=== PATIENT | female | born 1940 | race Caucasian/White ===

== ENCOUNTER 2017-06-28 16:57 | Inpatient (IN) | payer MEDICARE, MEDICAID ==
--- NOTE | 2017-06-28 17:17 | ER Document Report ---
ED Respiratory Problem - General Chief Complaint: Congestion Stated Complaint: COUGH,CONGESTION Time Seen by Provider: 06/28/17 17:13 Notes: The patient is a 77-year-old female who presents with productive yellow cough, congestion, fevers (100.9) and decreased oxygenation (satting 84% on RA) when she was at the [facility] urgent care center. The fever started earlier today that is what prompted the urgent care visit. Patient does not wear oxygen at home. She got her flu shot this year. Patient denies rash, chest pain, leg swelling, abdominal pain, urinary symptoms, headache, neck stiffness or hemoptysis. TRAVEL OUTSIDE OF THE [place] IN LAST 30 DAYS: No - Related Data Allergies/Adverse Reactions: codeine [Codeine] Allergy (Mild, Verified 03/19/16 10:14) DIZZINES aspirin [Aspirin] Allergy (Verified 03/19/16 10:14) Unknown reaction celecoxib [From Celebrex] Allergy (Verified 03/19/16 10:14) Past Medical History - General Information source: Patient, Emergency Med Personnel, Outside Facility Records - Social History Smoking Status: Unknown if Ever Smoked Family History: Reviewed & Not Pertinent - Past Medical History Cardiac Medical History: Denies: Hx Heart Attack, Hx Hypertension Pulmonary Medical History: Reports: Hx Asthma Neurological Medical History: Denies: Hx Cerebrovascular Accident, Hx Seizures GI Medical History: Denies: Hx Hepatitis, Hx Hiatal Hernia, Hx Ulcer Musculoskeltal Medical History: Reports Hx Arthritis Infectious Medical History: Denies: Hx Hepatitis Past Surgical History: Reports: Hx Cholecystectomy, Hx Hysterectomy. Denies: Hx Mastectomy, Hx Open Heart Surgery, Hx Pacemaker Review of Systems - Review of Systems Notes: REVIEW OF SYSTEMS: CONSTITUTIONAL: +fevers, -chills EENT: -eye pain, -difficulty swallowing, +nasal congestion CARDIOVASCULAR: -chest pain, -syncope. RESPIRATORY: +cough, -SOB GASTROINTESTINAL: -abdominal pain, -nausea, -vomiting, -diarrhea GENITOURINARY: -dysuria, -hematuria MUSCULOSKELETAL: -back pain, -neck pain SKIN: -rash or skin lesions. HEMATOLOGIC: -easy bruising or bleeding. LYMPHATIC: -swollen, enlarged glands. NEUROLOGICAL: -altered mental status or loss of consciousness, -headache, - neurologic symptoms PSYCHIATRIC: -anxiety, -depression. ALL OTHER SYSTEMS REVIEWED AND NEGATIVE. Physical Exam - Vital signs Vitals: Temp Resp Pulse Ox 101.2 F H 20 96 06/28/17 17:18 06/28/17 17:18 06/28/17 17:18 - Notes Notes: PHYSICAL EXAMINATION: GENERAL: No acute distress. Harsh productive cough. HEAD: Atraumatic, normocephalic. EYES: Pupils equal round and reactive to light, extraocular movements intact, sclera anicteric, conjunctiva are normal. ENT: nares patent, oropharynx clear without exudates. Moist mucous membranes. NECK: Normal range of motion, supple without lymphadenopathy LUNGS: Mild tachypnea. Crackles in RLL and LLL. HEART: Regular rate and rhythm without murmurs ABDOMEN: Soft, nontender, normoactive bowel sounds. No guarding, no rebound. No masses appreciated. EXTREMITIES: Normal range of motion, no pitting or edema. No cyanosis. NEUROLOGICAL: Cranial nerves grossly intact. Normal speech, normal gait. Normal sensory and motor exams. PSYCH: Normal mood, normal affect. SKIN: Warm, Dry, normal turgor, no rashes or lesions noted. Course - Re-evaluation Re-evalutation: Patient found to be 84% on room air at the urgent care center and does not wear oxygen at home. She is satting 96% on 2 L nasal cannula . Patient with harsh productive cough and crackles in B/L lower lobes. She has not been recently hospitalized and lives at home. Will begin CAP antibiotics due to suspected B/ L lower lobe pneumonia. Her primary care physician is Dr. Bob Miller. She requires admission due to her hypoxia and further evaluation and treatment of her pneumonia and sepsis. 06/28/17 19:[address] More and will admit patient as Inpatient to [facility]. - Vital Signs Vital signs: Temp Pulse Resp BP Pulse Ox 98.2 F 16 133/74 H 96 06/28/17 19:04 06/28/17 19:04 06/28/17 19:04 06/28/17 19:04 - Laboratory Result Diagrams: 06/28/17 17:40 06/28/17 17:40 Laboratory results interpreted by me: 06/28/17 06/28/17 06/28/17 17:25 17:40 17:40 WBC 18.0 H Lymphocytes % 12.1 L Absolute Neutrophils 13.9 H Absolute Monocytes 1.8 H Sodium 134.2 L Chloride 92 L BUN 21 H Est GFR ( Amer) 59 L Est GFR (Non-Af Amer) 49 L Glucose 251 H POC Glucose 249 H Direct Bilirubin 0.5 H Alkaline Phosphatase 133 H - Diagnostic Test Radiology reviewed: Image reviewed, Reports reviewed Radiology results interpreted by me: CXR: Small areas of airspace disease in both medial lung bases. No significant effusion. No pneumothorax. Mild interstitial markings. Discharge - Discharge Clinical Impression: Hypoxia Pneumonia Qualifiers: Pneumonia type: due to unspecified organism Laterality: bilateral Lung location : lower lobe of lung Qualified Code(s): J18.9 - Pneumonia, unspecified organism Condition: Stable Disposition: ADMITTED INPATIENT Admitting Provider: Hospitalist - [facility] Unit Admitted: Telemetry Referrals: BOB MILLER MD [Primary Care Provider] - Follow up as needed
[2017-06-28] MEDS ORDERED: CEFTRIAXONE 1 GM/D5W RTU 1 GM/50 ML RTUPB IV ONE (17:32)
[2017-06-28] MEDS ORDERED: AZITHROMYCIN INJ 500 MG VIAL IV ONE (17:32)
[2017-06-28 17:57] LABS: ABSOLUTE EOSINOPHILS # (AUTO) 0.1 10^3/uL (0.0-0.6); ABSOLUTE LYMPHOCYTES (AUTO) 2.2 10^3/uL (0.5-4.7); ABSOLUTE MONOCYTES (AUTO) 1.8 10^3/uL (0.1-1.4); ABSOLUTE NEUT (AUTO) 13.9 10^3/uL (1.7-8.2); BASOPHILS % (AUTO) 0.2 % (0-2); EOSINOPHILS % (AUTO) 0.4 % (0-6); HEMATOCRIT 37.1 % (36.0-47.0); HEMOGLOBIN 12.3 g/dL (12.0-15.5); LYMPHOCYTES % (AUTO) 12.1 % (13-45); MEAN CORPUSCULAR HEMOGLOBIN 30.4 pg (27.0-33.4); MEAN CORPUSCULAR HGB CONC 33.2 g/dL (32.0-36.0); MEAN CORPUSCULAR VOLUME 92 fl (80-97); MONOCYTES % (AUTO) 10.2 % (3-13); PLATELET COUNT 196 10^3/uL (150-450); RED BLOOD COUNT 4.04 10^6/uL (3.72-5.28); RED CELL DISTRIBUTION WIDTH 12.9 % (11.5-14.0); SEGMENTED NEUTROPHILS % (AUTO) 77.1 % (42-78); TOTAL CELLS COUNTED % (AUTO) 100 %; VENOUS BLOOD BASE EXCESS 4.8 mmol/L; VENOUS BLOOD HCO3 31.9 mmol/L (20-32); VENOUS BLOOD PCO2 58.5 mmHg (35-63); VENOUS BLOOD PH 7.35 (7.30-7.42)
[2017-06-28] MEDS ORDERED: CEFTRIAXONE INJ 1000 MG VIAL ONE (18:05)
[2017-06-28 18:17] LABS: ALANINE AMINOTRANSFERASE 24 U/L (9-52); ALBUMIN 3.7 g/dL (3.5-5.0); ALKALINE PHOSPHATASE 133 U/L (38-126); ANION GAP 12 (5-19); ASPARTATE AMINO TRANSFERASE 32 U/L (14-36); BILIRUBIN,DIRECT 0.5 mg/dL (0.0-0.4); BILIRUBIN,TOTAL 1.1 mg/dL (0.2-1.3); BLOOD UREA NITROGEN 21 mg/dL (7-20); CALCIUM 8.8 mg/dL (8.4-10.2); CARBON DIOXIDE 30 mmol/L (22-30); CHLORIDE 92 mmol/L (98-107); GLUCOSE 251 mg/dL (75-110); POTASSIUM 4.3 mmol/L (3.6-5.0); SODIUM 134.2 mmol/L (137-145); TOTAL PROTEIN 7.2 g/dL (6.3-8.2)
--- NOTE | 2017-06-28 18:18 | RADIOLOGY REPORT (SQ) ---
EXAM DESCRIPTION: CHEST SINGLE VIEW COMPLETED DATE/TIME: 06/28/2017 5:35 pm REASON FOR STUDY: hypoxia COMPARISON: None. EXAM PARAMETERS: NUMBER OF VIEWS: One view. TECHNIQUE: Single frontal radiographic view of the chest acquired. RADIATION DOSE: NA LIMITATIONS: None. FINDINGS: LUNGS AND PLEURA: Small areas of airspace disease in both medial lung bases. No significa nt effusion. No pneumothorax. Mild interstitial markings. MEDIASTINUM AND HILAR STRUCTURES: Age-appropriate. HEART AND VASCULAR STRUCTURES: Heart normal in size. Normal vasculature. BONES: No acute findings. HARDWARE: None in the chest. OTHER: No other significant finding. IMPRESSION: Small areas of airspace disease in both medial lung bases. No significant effusion. No pneumothorax. Mild interstitial markings. TECHNICAL DOCUMENTATION: JOB ID: [id number] 2010 [employer]- All Rights Reserved Reading location - IP/workstation name: [email or web address]
[2017-06-28 18:29] LABS: NT PRO BNP 351 pg/mL (<450); TROPONIN I < 0.012 ng/mL
[2017-06-28 19:46] LABS: A TYPE INFLUENZA AG NEGATIVE (NEGATIVE); B INFLUENZA AG NEGATIVE (NEGATIVE)
[2017-06-28] MEDS ORDERED: ALBUTEROL SULFATE 0.083% NEB 2.5 MG/3 ML AMPUL NEB PRN (20:00)
[2017-06-28] MEDS ORDERED: PROMETHAZINE HCL INJ 25 MG/1 ML VIAL IV PRN (20:00)
[2017-06-28] MEDS ORDERED: 1/2 NORMAL SALINE 1,000 ML IV PRN (20:00)
[2017-06-28] MEDS: ACETAMINOPHEN 325 MG TABLET PO PRN (20:21)
[2017-06-28] MEDS ORDERED: FLUTICASONE NASAL SPRAY 50 MCG/SPRY 120 SPRAY/16 GM NASL ONE (21:15)
--- NOTE | 2017-06-28 21:32 | EKG REPORT ---
SEVERITY:- NORMAL ECG - SINUS RHYTHM : Confirmed by: Chang Lopez MD 28-Jun-2017 21:31:33
[2017-06-28] MEDS ORDERED: DEXTROSE 40% GEL 15 GM TUBE PO PRN ×2 (21:46)
[2017-06-28] MEDS ORDERED: GLUCAGON,HUMAN RECOMB 1 MG INJ IM PRN (21:46)
[2017-06-28] MEDS ORDERED: DEXTROSE 50%-WATER 25 GM/50 ML DISP.SYRIN IV PRN ×2 (21:46)
--- NOTE | 2017-06-28 22:56 | PDOC H&P ---
History of Present Illness Admission Date/PCP: BOB SHRESTHA MD Patient complains of: Congestion and productive cough with worsening shortness of breath since yesterday. History of Present Illness: WASHINGTON SEXTON is a 77 year old morbidly obese female with history of asthma and type 2 diabetes mellitus was admitted with above-mentioned complaints. Some of the history was obtained from her children at bedside. According to the patient, she had some sinus pressure/congestion since yesterday. She thought that it was due to seasonal allergies. But this morning, she had increased wheezing and shortness of breath with a productive cough of greenish sputum. She has a nebulizer machine at home but she did not use it. She complained of having some chills but denied any sick contact. She is up-to- date with her flu vaccine. She apparently was seen at [facility] urgent [facility] [place] where her oxygen saturation was 84% on room air so her family brought her to the hospital for further assessment and treatment. In the ED, her temperature was 101.2, heart rate not recorded, respiratory rate 20, blood pressure 133/74 with oxygen saturation of 96% on 2 liters nasal cannula. Her WBC was 18.0 and her hemoglobin was 12.3. Her troponin x1 was negative and her proBNP was 351. A chest x-ray was done which showed infiltrates in bilateral medial bases. She received 1 g of Rocephin 1 and 500 mg IV Zithromax 1. Past Medical History Medical History: Other - According to the patient and per previous records. Cardiac Medical History: Denies: Myocardial Infarction, Hypertension Pulmonary Medical History: Reports: Asthma Neurological Medical History: Denies: Seizures Endocrine Medical History: Reports: Diabetes Mellitus Type 2 GI Medical History: Denies: Hepatitis, Hiatal Hernia Musculoskeltal Medical History: Reports: Arthritis Hematology: Denies: Anemia, Sickle Cell Disease Past Surgical History Past Surgical History: Reports: Cholecystectomy, Hysterectomy, Other - C- section x1. Denies: Amputation, Mastectomy, Pacemaker Social History Smoking Status: Unknown if Ever Smoked Cigarettes Packs Per Day: 0 Frequency of Alcohol Use: None Family History Parental Family History Reviewed: Yes - Mother: heart disease and diabetes. Children Family History Reviewed: No Sibling(s) Family History Reviewed.: Yes Medication/Allergy Home Medications: Ciprofloxacin HCl [Cipro 500 mg Tablet] 500 mg PO BID #20 tablet 11/15/16 Phenazopyridine HCl [Pyridium 200 mg Tablet] 200 mg PO TID #15 tablet 03/19/16 Allergies/Adverse Reactions: codeine [Codeine] Allergy (Mild, Verified 03/19/16 10:14) DIZZINES aspirin [Aspirin] Allergy (Verified 03/19/16 10:14) Unknown reaction celecoxib [From Celebrex] Allergy (Verified 03/19/16 10:14) Review of Systems ROS unobtainable: Other - Pertinent positives and negatives per HPI. The patient denies any nausea, vomiting, abdominal pain, diarrhea or constipation or any urinary symptoms. She has bilateral leg weakness and uses a cane/walker to ambulate. Physical Exam Vital Signs: Temp Pulse Resp BP Pulse Ox 98.2 F 16 133/74 H 96 06/28/17 19:04 06/28/17 19:04 06/28/17 19:04 06/28/17 19:04 General appearance: PRESENT: no acute distress, well-developed, well-nourished Head exam: PRESENT: atraumatic, normocephalic Eye exam: PRESENT: conjunctiva pink, PERRLA Mouth exam: PRESENT: moist, tongue midline Neck exam: ABSENT: JVD Respiratory exam: PRESENT: clear to auscultation sonya. ABSENT: rales, rhonchi, wheezes Cardiovascular exam: PRESENT: RRR - S1 S2 normal. Pulses: PRESENT: normal dorsalis pedis pul, +1 pedal pulses bilateral Vascular exam: PRESENT: normal capillary refill GI/Abdominal exam: PRESENT: normal bowel sounds, soft. ABSENT: distended, rebound, tenderness Rectal exam: PRESENT: deferred Extremities exam: PRESENT: full ROM, pedal edema. ABSENT: calf tenderness, clubbing Neurological exam: PRESENT: alert, awake, oriented to person, oriented to place , oriented to time, oriented to situation Skin exam: PRESENT: dry, intact, warm. ABSENT: cyanosis, rash Results Laboratory Results: 06/28/17 17:40 06/28/17 17:40 06/28/17 06/28/17 06/28/17 17:40 17:40 17:40 WBC 18.0 H RBC 4.04 Hgb 12.3 Hct 37.1 MCV 92 MCH 30.4 MCHC 33.2 RDW 12.9 Plt Count 196 Seg Neutrophils % 77.1 Lymphocytes % 12.1 L Monocytes % 10.2 Eosinophils % 0.4 Basophils % 0.2 Absolute Neutrophils 13.9 H Absolute Lymphocytes 2.2 Absolute Monocytes 1.8 H Absolute Eosinophils 0.1 Absolute Basophils 0.0 VBG pH VBG pCO2 VBG HCO3 VBG Base Excess Sodium 134.2 L Potassium 4.3 Chloride 92 L Carbon Dioxide 30 Anion Gap 12 BUN 21 H Creatinine 1.08 Est GFR ( Amer) 59 L Est GFR (Non-Af Amer) 49 L Glucose 251 H Lactic Acid 1.5 Calcium 8.8 Total Bilirubin 1.1 AST 32 ALT 24 Alkaline Phosphatase 133 H Total Protein 7.2 Albumin 3.7 06/28/17 17:40 WBC RBC Hgb Hct MCV MCH MCHC RDW Plt Count Seg Neutrophils % Lymphocytes % Monocytes % Eosinophils % Basophils % Absolute Neutrophils Absolute Lymphocytes Absolute Monocytes Absolute Eosinophils Absolute Basophils VBG pH 7.35 VBG pCO2 58.5 VBG HCO3 31.9 VBG Base Excess 4.8 Sodium Potassium Chloride Carbon Dioxide Anion Gap BUN Creatinine Est GFR ( Amer) Est GFR (Non-Af Amer) Glucose Lactic Acid Calcium Total Bilirubin AST ALT Alkaline Phosphatase Total Protein Albumin 06/28/17 17:40 Troponin I < 0.012 NT-Pro-B Natriuret Pep 351 Impressions: Chest X-Ray 06/28/17 17:14 IMPRESSION: Small areas of airspace disease in both medial lung bases. No significant effusion. No pneumothorax. Mild interstitial markings. Assessment & Plan - Diagnosis (1) Acute respiratory failure with hypoxia and hypercapnia Is this a current diagnosis for this admission?: Yes Plan: Given tachypnea and oxygen saturation down to 84% on room air requiring 2 L oxygen via nasal cannula, due to pneumonia or possibly asthma exacerbation. Albuterol nebulizer as needed, will start Prednisone and continue antibiotics. Flonase for nasal congestion. (2) Community acquired bacterial pneumonia Is this a current diagnosis for this admission?: Yes Plan: CXR reviewed. We will continue Rocephin/Zithromax while awaiting blood cultures. (3) Sepsis Qualifiers: Sepsis type: sepsis due to unspecified organism Qualified Code(s): A41.9 - Sepsis, unspecified organism Is this a current diagnosis for this admission?: Yes Plan: by criteria given fever and leukocytosis in the setting of pneumonia. However, the patient does not look septic clinically. Management as mentioned above (4) Type 2 diabetes mellitus Qualifiers: Diabetes mellitus complication status: with neurologic complications Diabetes mellitus complication detail: with unspecified neuropathy Diabetes mellitus half-way insulin use: with half-way use Qualified Code(s): E11.40 - Type 2 diabetes mellitus with diabetic neuropathy, unspecified; Z79.4 - [facility] (current) use of insulin; Z79.4 - family mediator (current) use of insulin; Z79.4 - family mediator (current) use of insulin; Z79.4 - family mediator (current) use of insulin Is this a current diagnosis for this admission?: Yes Plan: We will continue 70/30 (20 units) twice a day and add lispro sliding scale. - Time Time Spent: 50 to 70 Minutes Anticipated discharge: Home - Inpatient Certification Based on my medical assessment, after consideration of the patient's comorbidities, presenting symptoms, or acuity I expect that the services needed warrant INPATIENT care.: Yes I certify that my determination is in accordance with my understanding of Medicare's requirements for reasonable and necessary INPATIENT services [42 CFR 412.3e].: Yes
[2017-06-28] MEDS ORDERED: PREDNISONE 20 MG TABLET PO ONE (23:15)
[2017-06-29] MEDS: HEPARIN SOD (PORCINE) 5,000 UNIT/ML 1 ML SYRINGE SUBCUT SCH ×4 (01:34→21:05)
[2017-06-29] MEDS: ACETAMINOPHEN 325 MG TABLET PO PRN ×2 (05:04→23:47)
[2017-06-29 07:46] LABS: HEMOGLOBIN 12.7 g/dL (12.0-15.5); MEAN CORPUSCULAR HEMOGLOBIN 30.5 pg (27.0-33.4); MEAN CORPUSCULAR HGB CONC 33.3 g/dL (32.0-36.0); MEAN CORPUSCULAR VOLUME 92 fl (80-97); PLATELET COUNT 164 10^3/uL (150-450); RED BLOOD COUNT 4.15 10^6/uL (3.72-5.28); RED CELL DISTRIBUTION WIDTH 12.5 % (11.5-14.0); WHITE BLOOD COUNT 11.9 10^3/uL (4.0-10.5)
[2017-06-29] MEDS: INSULIN LISPRO 100 UNIT/ML 3 ML VIAL SUBCUT PRN ×4 (07:56→21:05)
[2017-06-29] MEDS: HUM INSULIN NPH/REG INSULIN HM 100 UNIT/1 ML 3 ML SUBCUT SCH ×2 (07:56→16:39)
[2017-06-29 07:59] LABS: ANION GAP 17 (5-19); BLOOD UREA NITROGEN 18 mg/dL (7-20); CALCIUM 8.5 mg/dL (8.4-10.2); CARBON DIOXIDE 27 mmol/L (22-30); CHLORIDE 90 mmol/L (98-107); GLUCOSE 285 mg/dL (75-110); POTASSIUM 4.7 mmol/L (3.6-5.0); SODIUM 133.5 mmol/L (137-145)
[2017-06-29] MEDS ORDERED: PREDNISONE 20 MG TABLET PO SCH (10:00)
[2017-06-29] MEDS: CEFTRIAXONE SODIUM 1,000 MG in NORMAL SALINE 100 ML IV SCH (10:40)
[2017-06-29] MEDS: FLUTICASONE NASAL SPRAY 50 MCG/SPRY 120 SPRAY/16 GM NASL SCH (10:41)
--- NOTE | 2017-06-29 11:37 | PDOC PROGRESS REPORT ---
Subjective Progress Note for:: 06/29/17 Subjective:: Patient admitted with congestion and productive cough associated with shortness of breath. She also complained of a greenish sputum. She was found to be hypoxemic and was brought to the emergency room where she was also found to be febrile with a temperature 101.2 and tachypneic. Reason For Visit: PNEUMONIA Physical Exam Vital Signs: Temp Pulse Resp BP Pulse Ox 98.1 F 97 20 130/95 H 93 06/29/17 08:21 06/29/17 08:21 06/29/17 08:21 06/29/17 08:21 06/29/17 08:21 Intake & Output 06/28/17 06/29/17 06/30/17 06:59 06:59 06:59 Intake Total 400 Output Total 250 Balance 150 Weight 93 kg General appearance: PRESENT: no acute distress, cooperative Head exam: PRESENT: atraumatic Neck exam: ABSENT: carotid bruit, JVD, lymphadenopathy, thyromegaly Respiratory exam: PRESENT: decreased breath sounds, rhonchi, unlabored. ABSENT : tachypnea, wheezes Cardiovascular exam: PRESENT: RRR. ABSENT: diastolic murmur, rubs, systolic murmur Pulses: PRESENT: normal dorsalis pedis pul GI/Abdominal exam: PRESENT: normal bowel sounds, soft. ABSENT: distended, guarding, mass, organolmegaly, rebound, tenderness Rectal exam: PRESENT: deferred Gentrourinary exam: ABSENT: ecchymosis Extremities exam: ABSENT: calf tenderness Neurological exam: PRESENT: alert, altered, awake, oriented to person, oriented to place, oriented to time, oriented to situation Psychiatric exam: PRESENT: appropriate affect, normal mood. ABSENT: homicidal ideation, suicidal ideation Results Laboratory Results: 06/29/17 07:03 06/29/17 07:03 06/29/17 06/29/17 07:03 07:03 WBC 11.9 H RBC 4.15 Hgb 12.7 Hct 38.0 MCV 92 MCH 30.5 MCHC 33.3 RDW 12.5 Plt Count 164 Sodium 133.5 L Potassium 4.7 Chloride 90 L Carbon Dioxide 27 Anion Gap 17 BUN 18 Creatinine 0.95 Est GFR ( Amer) > 60 Est GFR (Non-Af Amer) 57 L Glucose 285 H Calcium 8.5 Impressions: Chest X-Ray 06/28/17 17:14 IMPRESSION: Small areas of airspace disease in both medial lung bases. No significant effusion. No pneumothorax. Mild interstitial markings. Assessment & Plan - Time Time Spent with patient: 15-24 minutes Medications reviewed and adjusted accordingly: Yes Anticipated discharge: Home Within: within 72 hours - Inpatient Certification Medical Necessity: Failure to Improve With Outpatient Therapy, Need for IV Antibiotics - Plan Summary Plan Summary: 1.Sepsis with the fever, tachypnea, hypoxemia leukocytosis and respiratory infection. This seems to be improving 2. Acute hypoxemic respiratory failure with oxygen improved with 2 L of nasal cannula. 3. Community-acquired pneumonia currently on empiric treatment with ceftriaxone and Zithromax. Will continue both 4. Type 2 diabetes mellitus on sliding scale insulin as well as basal insulin with 7030. 5. Morbid obesity with a BMI of 41 patient should be encouraged to lose weight.
[2017-06-29] MEDS: AZITHROMYCIN 500 MG in DEXTROSE 5%-WATER 250 ML IV SCH (17:13)
[2017-06-29] MEDS ORDERED: CEFTRIAXONE 1 GM/D5W RTU 1 GM/50 ML RTUPB IV SCH (18:00)
[2017-06-30] MEDS: HEPARIN SOD (PORCINE) 5,000 UNIT/ML 1 ML SYRINGE SUBCUT SCH ×3 (05:22→21:47)
[2017-06-30 06:11] LABS: ABSOLUTE LYMPHOCYTES (AUTO) 1.4 10^3/uL (0.5-4.7); ABSOLUTE MONOCYTES (AUTO) 0.9 10^3/uL (0.1-1.4); ABSOLUTE NEUT (AUTO) 10.1 10^3/uL (1.7-8.2); BASOPHILS % (AUTO) 0.3 % (0-2); HEMATOCRIT 37.5 % (36.0-47.0); HEMOGLOBIN 12.5 g/dL (12.0-15.5); LYMPHOCYTES % (AUTO) 11.3 % (13-45); MEAN CORPUSCULAR HEMOGLOBIN 30.4 pg (27.0-33.4); MEAN CORPUSCULAR HGB CONC 33.3 g/dL (32.0-36.0); MEAN CORPUSCULAR VOLUME 91 fl (80-97); MONOCYTES % (AUTO) 7.6 % (3-13); PLATELET COUNT 193 10^3/uL (150-450); RED BLOOD COUNT 4.12 10^6/uL (3.72-5.28); RED CELL DISTRIBUTION WIDTH 12.5 % (11.5-14.0); SEGMENTED NEUTROPHILS % (AUTO) 80.8 % (42-78); TOTAL CELLS COUNTED % (AUTO) 100 %; WHITE BLOOD COUNT 12.5 10^3/uL (4.0-10.5)
[2017-06-30 06:42] LABS: ANION GAP 11 (5-19); BLOOD UREA NITROGEN 23 mg/dL (7-20); CALCIUM 9.3 mg/dL (8.4-10.2); CARBON DIOXIDE 33 mmol/L (22-30); CHLORIDE 96 mmol/L (98-107); GLUCOSE 295 mg/dL (75-110); POTASSIUM 3.9 mmol/L (3.6-5.0); SODIUM 139.7 mmol/L (137-145)
[2017-06-30] MEDS: HUM INSULIN NPH/REG INSULIN HM 100 UNIT/1 ML 3 ML SUBCUT SCH ×2 (08:12→17:01)
[2017-06-30] MEDS: INSULIN LISPRO 100 UNIT/ML 3 ML VIAL SUBCUT PRN ×3 (08:12→22:03)
[2017-06-30] MEDS: CEFTRIAXONE SODIUM 1,000 MG in NORMAL SALINE 100 ML IV SCH (10:08)
[2017-06-30] MEDS: FLUTICASONE NASAL SPRAY 50 MCG/SPRY 120 SPRAY/16 GM NASL SCH (10:09)
--- NOTE | 2017-06-30 14:43 | PDOC PROGRESS REPORT ---
Subjective Progress Note for:: 06/30/17 Subjective:: Patient admitted with congestion and productive cough associated with shortness of breath. She also complained of a greenish sputum. She was found to be hypoxemic and was brought to the emergency room where she was also found to be febrile with a temperature 101.2 and tachypneic. Patient feels better today. She is ambulatory to bathroom and breathing better. C/o whitish plaques under tongue Reason For Visit: PNEUMONIA Physical Exam Vital Signs: Temp Pulse Resp BP Pulse Ox 98.3 F 91 21 H 144/58 H 97 06/30/17 11:54 06/30/17 14:00 06/30/17 11:54 06/30/17 11:54 06/30/17 11:54 Intake & Output 06/29/17 06/30/17 07/01/17 06:59 06:59 06:59 Intake Total 400 928 Output Total 250 600 Balance 150 328 Weight 93 kg 94.7 kg General appearance: PRESENT: no acute distress, obese, well-developed, well- nourished Head exam: PRESENT: atraumatic Mouth exam: PRESENT: moist, neck supple Teeth exam: PRESENT: poor dentation Respiratory exam: PRESENT: decreased breath sounds, rhonchi. ABSENT: accessory muscle use, chest wall tenderness, clear to auscultation sonya Cardiovascular exam: PRESENT: RRR. ABSENT: diastolic murmur, rubs, systolic murmur Pulses: PRESENT: normal dorsalis pedis pul GI/Abdominal exam: PRESENT: normal bowel sounds, soft. ABSENT: distended, guarding, mass, organolmegaly, rebound, tenderness Rectal exam: PRESENT: deferred Extremities exam: PRESENT: full ROM. ABSENT: calf tenderness, clubbing, pedal edema Musculoskeletal exam: PRESENT: ambulatory Neurological exam: PRESENT: alert, awake, oriented to person, oriented to place , oriented to time, oriented to situation, CN II-XII grossly intact Psychiatric exam: PRESENT: appropriate affect, normal mood. ABSENT: homicidal ideation, suicidal ideation Results Laboratory Results: 06/30/17 05:37 06/30/17 05:37 06/30/17 06/30/17 05:37 05:37 WBC 12.5 H RBC 4.12 Hgb 12.5 Hct 37.5 MCV 91 MCH 30.4 MCHC 33.3 RDW 12.5 Plt Count 193 Seg Neutrophils % 80.8 H Lymphocytes % 11.3 L Monocytes % 7.6 Eosinophils % 0.0 Basophils % 0.3 Absolute Neutrophils 10.1 H Absolute Lymphocytes 1.4 Absolute Monocytes 0.9 Absolute Eosinophils 0.0 Absolute Basophils 0.0 Sodium 139.7 Potassium 3.9 Chloride 96 L Carbon Dioxide 33 H Anion Gap 11 BUN 23 H Creatinine 0.96 Est GFR ( Amer) > 60 Est GFR (Non-Af Amer) 56 L Glucose 295 H Calcium 9.3 Impressions: Chest X-Ray 06/28/17 17:14 IMPRESSION: Small areas of airspace disease in both medial lung bases. No significant effusion. No pneumothorax. Mild interstitial markings. Assessment & Plan - Time Time Spent with patient: 15-24 minutes - Family updated on condition Medications reviewed and adjusted accordingly: Yes Anticipated discharge: Home Within: within 72 hours - Inpatient Certification Based on my medical assessment, after consideration of the patient's comorbidities, presenting symptoms, or acuity I expect that the services needed warrant INPATIENT care.: Yes I certify that my determination is in accordance with my understanding of Medicare's requirements for reasonable and necessary INPATIENT services [42 CFR 412.3e].: Yes Medical Necessity: Failure to Improve With Outpatient Therapy, Need for IV Antibiotics - Plan Summary Plan Summary: 1.Sepsis with the fever, tachypnea, hypoxemia leukocytosis and respiratory infection. This is resolving 2. Acute hypoxemic respiratory failure with oxygen improved with 2 L of nasal cannula. We will wean off oxygen as tolerated 3. Community-acquired pneumonia currently on empiric treatment with ceftriaxone and Zithromax. Will continue both 4. Type 2 diabetes mellitus on sliding scale insulin as well as basal insulin with 70/30. Blood sugar has improved with tapering of steroids 5. Morbid obesity with a BMI of 41 patient should be encouraged to lose weight. 6. Oral candidiasis will place on nystatin swish and swallow
[2017-06-30] MEDS ORDERED: ACETAMINOPHEN 325 MG TABLET PO PRN (15:00)
[2017-06-30] MEDS ORDERED: PROMETHAZINE HCL INJ 25 MG/1 ML VIAL IV PRN (15:00)
[2017-06-30] MEDS: AZITHROMYCIN 500 MG in DEXTROSE 5%-WATER 250 ML IV SCH (17:02)
[2017-06-30] MEDS: NYSTATIN 500000 UNIT/5 ML UDCUP PO SCH (17:02)
[2017-07-01] MEDS: NYSTATIN 500000 UNIT/5 ML UDCUP PO SCH ×3 (00:33→11:09)
[2017-07-01] MEDS: HEPARIN SOD (PORCINE) 5,000 UNIT/ML 1 ML SYRINGE SUBCUT SCH ×2 (05:33→13:20)
[2017-07-01] MEDS: HUM INSULIN NPH/REG INSULIN HM 100 UNIT/1 ML 3 ML SUBCUT SCH (08:31)
[2017-07-01] MEDS: CEFTRIAXONE SODIUM 1,000 MG in NORMAL SALINE 100 ML IV SCH (10:56)
[2017-07-01] MEDS: FLUTICASONE NASAL SPRAY 50 MCG/SPRY 120 SPRAY/16 GM NASL SCH (10:57)
[2017-07-01] MEDS: INSULIN LISPRO 100 UNIT/ML 3 ML VIAL SUBCUT PRN (11:09)
[2017-07-01 14:50] VITALS: BP 140/85
--- NOTE | 2017-07-01 15:25 | PDOC DISCHARGE SUMMARY ---
General - Admit/Disc Date/PCP Admission Date/Primary Care Provider: 06/28/17 20:34 BOB MILLER MD Discharge Date: 07/01/17 - Discharge Diagnosis (1) Sepsis Is this a current diagnosis for this admission?: Yes Summary: Present on admission manifested by high fever, tachycardia, relative hypotension , leukocytosis and evidence of infection. Her sepsis was secondary to underlying pneumonia. (2) Acute respiratory failure with hypoxia and hypercapnia Is this a current diagnosis for this admission?: Yes Summary: Resolved. Her oxygen saturations are stable on room air. Her respiratory failure was due to underlying pneumonia. (3) Pneumonia Is this a current diagnosis for this admission?: Yes Summary: Concerns for community-acquired pathogen such as gram positives and atypicals. She will complete a course of p.o. Zithromax and Omnicef. (4) Morbid obesity Is this a current diagnosis for this admission?: Yes Summary: Certainly she would benefit from weight loss. Her BMI is 42.3. Dietary discretion is advised. (5) Type 2 diabetes mellitus Is this a current diagnosis for this admission?: Yes Summary: She will resume her home regimen (6) Thrush Is this a current diagnosis for this admission?: Yes Summary: She will complete a course of nystatin swish and swallow (7) Full code status Is this a current diagnosis for this admission?: Yes - Additional Information Discharge Diet: As Tolerated, Diabetic Discharge Activity: Activity As Tolerated, Balance Activity w/Rest Prescriptions: Azithromycin [Zithromax] 2 tab PO DAILY #6 tablet Cefdinir [Omnicef 300 mg Capsule] 1 cap PO BID #10 capsule Fluticasone Propionate [Flonase Nasal [place] 50 Mcg/[place] 16 gm] 2 spray NASL DAILY #1 spray.pump Nystatin [Mycostatin 500,000 Unit/5 ml Susp Udcup] 5 ml PO Q6 7 Days #35 ml Home Medications: Atorvastatin Calcium [Lipitor 20 mg Tablet] 20 mg PO DAILY 06/29/17 Gabapentin [Neurontin 100 mg Capsule] 100 mg PO QHS 06/29/17 Hum Insulin NPH/Reg Insulin Hm [Insulin 70-30 (NPH/Reg) 100 unit/mL] 20 unit SUBCUT Q12 06/29/17 Hydroxyzine HCl [Atarax 25 mg Tablet] 25 mg PO Q6HP PRN 02/25/18 Meclizine HCl [Antivert 25 mg Tablet] 25 mg PO Q6HP PRN 06/29/17 Metoprolol Succinate [Toprol Xl 25 mg Tab.sr] 25 mg PO DAILY 06/29/17 Omeprazole 40 mg PO DAILY 06/29/17 Tramadol HCl [Ultram 50 mg Tablet] 50 mg PO TIDP PRN 06/29/17 Azithromycin [Zithromax] 2 tab PO DAILY #6 tablet 07/01/17 Cefdinir [Omnicef 300 mg Capsule] 1 cap PO BID #10 capsule 07/01/17 Fluticasone Propionate [Flonase Nasal [place] 50 Mcg/[place] 16 gm] 2 spray NASL DAILY #1 spray.pump 07/01/17 Nystatin [Mycostatin 500,000 Unit/5 ml Susp Udcup] 5 ml PO Q6 7 Days #35 ml History of Present Illness Patient complains of: Shortness of breath and cough History of Present Illness: WASHINGTON SEXTON is a 77 year old female who presented to the emergency room with shortness of breath and cough. Hospital Course Hospital Course: The patient is a pleasant 77-year-old morbidly obese female with a past medical history significant for asthma and type 2 diabetes. The patient presented to the emergency room with increased shortness of breath with a productive cough and green sputum. She was found to be hypoxic with evidence of infiltrates in the bilateral medial basis. She was admitted to the hospital and started on oxygen therapy with aggressive breathing treatments. She was started on IV Zithromax and Rocephin. Over the course of the hospitalization the patient is slowly improved. As of today she has been totally weaned off of her oxygen. She has been afebrile for 48 hours and it is felt that she could be transitioned over to oral therapies and discharged to home. I did speak to the patient's son at the time of discharge. We are going to set her up with home health services as she is somewhat debilitated after this acute illness. We will get her an appointment to follow-up with her primary care physician Dr. Bob Miller hopefully next week. At this point maximum hospital benefit has been reached. The patient will be discharged home today in stable condition. Physical Exam Vital Signs: Temp Pulse Resp BP Pulse Ox 97.8 F 86 18 140/85 H 93 07/01/17 14:46 07/01/17 14:46 07/01/17 14:46 07/01/17 14:46 07/01/17 14:46 Intake & Output 06/30/17 07/01/17 07/02/17 06:59 06:59 06:59 Intake Total 928 1293 Output Total 600 400 Balance 328 893 Weight 94.7 kg 94.9 kg 94.9 kg General appearance: PRESENT: no acute distress, morbidly obese, well-developed, well-nourished Head exam: PRESENT: atraumatic, normocephalic Mouth exam: PRESENT: moist, tongue midline Respiratory exam: PRESENT: decreased breath sounds, rhonchi Cardiovascular exam: PRESENT: RRR. ABSENT: diastolic murmur, rubs, systolic murmur GI/Abdominal exam: PRESENT: normal bowel sounds, soft. ABSENT: distended, guarding, mass, rebound, tenderness Rectal exam: PRESENT: deferred Extremities exam: PRESENT: full ROM. ABSENT: calf tenderness, clubbing, pedal edema Neurological exam: PRESENT: alert, awake, oriented to person, oriented to place , oriented to time, oriented to situation, CN II-XII grossly intact. ABSENT: motor sensory deficit Psychiatric exam: PRESENT: appropriate affect, normal mood. ABSENT: homicidal ideation, suicidal ideation Skin exam: PRESENT: dry, intact, warm. ABSENT: cyanosis, rash Results Laboratory Results: 06/30/17 05:37 06/30/17 05:37 Impressions: Chest X-Ray 06/28/17 17:14 IMPRESSION: Small areas of airspace disease in both medial lung bases. No significant effusion. No pneumothorax. Mild interstitial markings. Qualifiers - * PATEINT BEING DISCHARGED WITH ANY OF THE FOLLOWING DIAGNOSIS?: No Plan Discharge Plan: She will be discharged home today in stable condition with close outpatient follow-up from her primary care physician. Time Spent: Greater than 30 Minutes
== END 2017-07-01 15:17 | disposition home health service (06) | DRG 871 ==
LOC: ER 16:57 → EH 20:34 → 5 21:45
PROVIDERS: ADMIT Internal Medicine Geriatric Medicine; ATTEND Internal Medicine Geriatric Medicine
PROC: 3E0F73Z Introduction of Anti-inflammatory into Respiratory Tract, Via Natural or Artificial Opening (ICD-10-PCS; principal; 2017-07-01)
DX: A41.9 Sepsis, unspecified organism (principal); J18.9 Pneumonia, unspecified organism; J96.02 Acute respiratory failure with hypercapnia; J96.01 Acute respiratory failure with hypoxia; Z68.41 Body mass index [BMI] 40.0-44.9, adult; B37.0 Candidal stomatitis; E66.01 Morbid (severe) obesity due to excess calories; E11.9 Type 2 diabetes mellitus without complications; J45.909 Unspecified asthma, uncomplicated; M19.90 Unspecified osteoarthritis, unspecified site; Z79.4 Long term (current) use of insulin; Z90.49 Acquired absence of other specified parts of digestive tract; Z90.710 Acquired absence of both cervix and uterus; Z82.49 Family history of ischemic heart disease and other diseases of the circulatory system; Z83.3 Family history of diabetes mellitus; Z88.6 Allergy status to analgesic agent
CPT/HCPCS: 36415; 71045; 80048; 80053; 82803; 82962; 83605; 83880; 84484; 85025; 85027; 87040; 87804; 93005; 93010; 96365; 96375; 99285; J0456; J0696; J1644; J1815; J3490; J7060; J7512